=== PATIENT | female | born 1940 | race Caucasian/White ===

== ENCOUNTER 2017-04-21 11:20 | Inpatient (IN) | payer MEDICARE, MEDICAID ==
[~2017-04-21] VITALS: Ht 162.6 cm; Wt 63.0 kg
[2017-04-21] MEDS ORDERED: VANCOMYCIN 1 GM (PMX) 250 ML IVPB STA (11:37)
[2017-04-21] MEDS ORDERED: PIPER-TAZO 3.375 GM IV (PMX) 100 ML IVPB STA (11:37)
[2017-04-21] MEDS ORDERED: SODIUM CHLORIDE 0.9% 1L BAG IV* STA (11:45)
[2017-04-21] MEDS ORDERED: morphine 4 MG/ML VIAL IV STA (11:45)
[2017-04-21] MEDS ORDERED: ONDANSETRON 4 MG INJ IV STA (11:45)
[2017-04-21] MEDS ORDERED: ONDANSETRON 4 MG INJ IV PRN ×2 (12:00→16:00)
[2017-04-21] MEDS ORDERED: AZTREONAM 1 GM/NS (PMX) 50 ML IVPB ONE (12:00)
[2017-04-21] MEDS ORDERED: CLINDAMYCIN 900 MG/D5W (PMX) 50 ML IVPB SCH (12:00)
[2017-04-21] MEDS ORDERED: ACETAMINOPHEN 325 MG TAB PO PRN ×2 (12:00→16:00)
[2017-04-21] MEDS ORDERED: MEMA28CA PO (12:15)
[2017-04-21] MEDS ORDERED: CLOP75TA27 PO (12:15)
[2017-04-21] MEDS ORDERED: CARB1TAB14 PO (12:15)
[2017-04-21] MEDS ORDERED: PARO-37 PO (12:16)
[2017-04-21] MEDS ORDERED: RASA1TAB PO (12:16)
[2017-04-21] MEDS ORDERED: ATEN100T PO (12:20)
[2017-04-21] MEDS ORDERED: OMEG-135 PO (12:28)
[2017-04-21] MEDS ORDERED: CALC300T4 PO (12:31)
[2017-04-21] MEDS ORDERED: DOCU250C58 PO (12:31)
[2017-04-21] MEDS ORDERED: NORT25CA PO (12:31)
--- NOTE | 2017-04-21 13:26 | RADRPT ---
PROCEDURE: Chest x-ray CLINICAL INDICATION: Shortness of breath TECHNIQUE: Chest single view COMPARISON: None FINDINGS: There is mild cardiomegaly and an sclerotic aortic calcification. The pulmonary vessels are normal in caliber. Lung volumes are low with mild atelectasis. No confluent pneumonia seen. Costophrenic an gles sharp. There is lower cervical spine hardware. Moderate degenerative changes noted of the left glenohumeral joint. IMPRESSION: 1. Mild cardiomegaly and an sclerotic aortic calcification.. 2. Low lung volumes. 3. Cervical spine hardware RPTAT: HH .Lee Bhandari MD, MD Date Time Electronically viewed and signed by .Lee Bahndari MD, on 04/21/2017 13:26 .W/
--- NOTE | 2017-04-21 13:51 | RADRPT ---
PROCEDURE: XR Foot 3 Views. CLINICAL INDICATION: Right foot pain. Ulcer.. TECHNIQUE: AP, oblique and lateral views of the right foot were obtained. The images were reviewe d on a PACS workstation. COMPARISON: None. FINDINGS: Diffuse osteopenia is identified. The osseous structures appear intact. No destructive bony lesions are seen. No gross erosions are observed. Moderate narrowing and degenerative changes identified a t the first metatarsal phalangeal joint. The soft tissues are grossly unremarkable. IMPRESSION: No visualized radiographic evidence of osteomyelitis. If there is clinical suspicion for osteomyelit is, further characterization with MRI or bone scan is recommended. Osteopenia. Moderate degenerative change of the first metatarsal phalangeal joint. Osteopenia. RPTAT: AA .Terrell Shah MD, Date Time Electronically viewed and signed by .Terrell Shah MD, MD on 04/21/2017 13:51 .P/
--- NOTE | 2017-04-21 13:53 | ERD ---
ER Documentation Chief Complaint Chief Complaint R FOOT WOUND X 1 MONTH SENT FROM WOUND CENTER HPI Patient is a 77-year-old female with dementia and coronary disease who presents with gangrene. Please note the history and physical exam is limited secondary to the patient's mental status from dementia. The patient was sent from [facility] for admission for wet gangrene. The patient has infection to the right foot and heel. 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 The patient came from a convalescent home. I cannot obtain history otherwise. ROS All systems reviewed and are negative except as per history of present illness. Medications Home Meds Reported Medications Nortriptyline Hcl* (Nortriptyline Hcl*) 25 Mg Capsule, 25 MG PO HS, CAP 04/21/17 Docusate Sodium* (Colace*) 250 Mg Capsule, 250 MG PO BID, #60 CAP 04/21/17 Calcium Carbonate* (Tums X-Str) 300 Mg Tab.chew, 600 MG PO BID, TAB.CHEW 04/21/17 [place]-3 Fatty Acids/Fish Oil (Fish Oil 1,000 mg Capsule) 1 Each Capsule, 1 EACH PO BID, CAP 04/21/17 Atenolol* (Atenolol*) 100 Mg Tablet, 100 MG PO DAILY, #30 TAB 04/21/17 Rasagiline Mesylate* (Azilect*) 1 Mg Tablet, 1 MG PO DAILY, TAB 04/21/17 Paroxetine Hcl* (Paroxetine*) 20 Mg Tablet, 20 MG PO DAILY, TAB 04/21/17 Clopidogrel Bisulfate (Clopidogrel) 75 Mg Tablet, 75 MG PO DAILY, #30 TAB 04/21/17 Memantine* (Namenda* XR) 28 Mg Cap.spr.24, 28 MG PO DAILY, #30 TAB 04/21/17 Uyyensccf-Gobhkymf-Kpycqrvdvp (Stalevo 125) 31.25-200-125 Mg Tablet, 1 EACH PO QID, TAB 04/21/17 Allergies Allergies: Coded Allergies: Penicillins (Verified Allergy, Unknown, 04/21/17) PMhx/Soc Hx Cardiac Disorders: Yes (HTN) Hx Alcohol Use: No Hx Substance Use: No Hx Tobacco Use: No Smoking Status: Never smoker FmHx Family History: No diabetes Physical Exam Vitals Vital Signs Date Time Temp Pulse Resp B/P Pulse Ox O2 Delivery O2 Flow Rate FiO2 10/27/17 12:04 Nasal Cannula 04/21/17 11:35 99.4 76 18 187/70 97 Physical Exam Const: Moderate distress Head: Atraumatic Eyes: Normal Conjunctiva ENT: Normal External Ears, Nose and Mouth. Neck: Full range of motion..~ No meningismus. Resp: Clear to auscultation bilaterally Cardio: Regular rate and rhythm, no murmurs Abd: Soft, non tender, non distended. Normal bowel sounds Skin: Swelling, redness, and black necrosis of the right foot and ankle consistent with gangrene Back: No midline or flank tenderness Ext: No cyanosis, or edema Neur: Awake but demented at baseline Result Diagram: 04/21/17 1220 04/21/17 1220 Results 24 hrs Laboratory Tests Test 04/21/17 12:20 White Blood Count 14.710^3/ul Red Blood Count 3.2810^6/ul Hemoglobin 9.6g/dl Hematocrit 30.4% Mean Corpuscular Volume 92.7fl Mean Corpuscular Hemoglobin 29.3pg Mean Corpuscular Hemoglobin Concent 31.6g/dl Red Cell Distribution Width 13.3% Platelet Count 33550^3/UL Mean Platelet Volume 9.0fl Neutrophils % % Segmented Neutrophils % (Manual) 86% Band Neutrophils % (Manual) 1% Lymphocytes % % Lymphocytes % (Manual) 7% Monocytes % % Monocytes % (Manual) 3% Eosinophils % % Basophils % % Basophils % (Manual) 2% Promyelocytes % (Manual) 1% Nucleated Red Blood Cells % 0.0/100WBC Neutrophils # 10^3/ul Neutrophils # (Manual) 12.710^3/ul Band Neutrophils # 0.110^3/ul Absolute Lymphocytes (Manual) 1.010^3/ul Lymphocytes # 10^3/ul Monocytes # 10^3/ul Absolute Monocytes (Manual) 0.410^3/ul Eosinophils # 10^3/ul Basophils # 10^3/ul Basophils # (Manual) 0.210^3/ul Promyelocytes # 0.110^3/ul Nucleated Red Blood Cells # 10^3/ul Platelet Estimate INCREASED Giant Platelets 1% Polychromasia 1+ Prothrombin Time 13.3Sec Prothrombin Time Ratio 1.0 INR International Normalized Ratio 1.01 Activated Partial Thromboplast Time 31.2Sec Sodium Level 142mmol/L Potassium Level 4.4mmol/L Chloride Level 104mmol/L Carbon Dioxide Level 30mmol/L Anion Gap 12 Blood Urea Nitrogen 20mg/dl Creatinine 0.76mg/dl Glucose Level 113mg/dl Lactic Acid Level 1.4mmol/L Calcium Level 8.8mg/dl Total Bilirubin 0.2mg/dl Direct Bilirubin 0.00mg/dl Indirect Bilirubin 0.2mg/dl Aspartate Amino Transf (AST/SGOT) 18IU/L Alanine Aminotransferase (ALT/SGPT) 30IU/L Alkaline Phosphatase 106IU/L Troponin I < 0.012ng/ml Total Protein 7.3g/dl Albumin 3.9g/dl Globulin 3.40g/dl Albumin/Globulin Ratio 1.14 Current Medications Medications (Trade) Dose Ordered Sig/Samra Route PRN Reason Start Time Stop Time Status Last Admin Dose Admin Vancomycin HCl 250 ml @ 125 mls/hr ONCE STAT IVPB 04/21/17 11:37 04/21/17 13:36 DC Piperacillin Sod/ Tazobactam Sod 100 ml @ 100 mls/hr ONCE STAT IVPB 04/21/17 11:37 04/21/17 11:45 DC Aztreonam 50 ml @ 100 mls/hr ONCE ONCE IVPB 04/21/17 12:00 04/21/17 12:29 DC 04/21/17 12:00 Clindamycin HCl/ Dextrose (Cleocin 900 Mg/ D5W (Pmx)) 50 ml @ 50 mls/hr ONCE IVPB 04/21/17 12:00 04/21/17 13:00 DC Sodium Chloride (NS) 2,170 ml BOLUS OVER 2 HOURS STAT IV* 04/21/17 11:45 04/21/17 11:46 DC 04/21/17 12:20 Morphine Sulfate (morphine) 4 mg ONCE STAT IV 04/21/17 11:45 04/21/17 11:46 DC 04/21/17 12:20 Ondansetron HCl (Zofran Inj) 4 mg ONCE STAT IV 04/21/17 11:45 04/21/17 11:46 DC 04/21/17 12:20 Ondansetron HCl (Zofran Inj) 4 mg BRIDGE ORDER PRN IV NAUSEA AND/OR VOMITING 04/21/17 12:00 04/22/17 11:59 Acetaminophen (Tylenol Tab) 650 mg ER BRIDGE PRN PO MILD PAIN/FEVER 04/21/17 12:00 04/22/17 11:59 Procedures/MDM Chest x-ray negative per radiology. Foot x-ray pending. EKG read by me: Rate/Rhythm: Regular rate and rhythm at a normal rate Intervals: Normal Impression: No evidence of ischemia or arrhythmia Admit MDM: Patient's infectious symptoms have not stabilized and the patient is at risk of rapid decompensation. The patient will be admitted for careful hydration, antibiotic therapy, and infectious source control. Severe Sepsis criteria: Infectious source: Wet gangrene with cellulitis of the right foot End organ damage indicated by: No end organ damage Sepsis Management: Time of recognition of sepsis: Upon arrival Within 3 hours of recognition: Blood cultures x 2 before broad-spectrum antibiotics: Yes 30 ml/kg NS bolus Completed Initial lactate normal Repeat lactate pending Time of recognition of septic shock: No septic shock Septic Shock Assessment: Any lactic acid > 4.0 No Persistent hypotension (SBP < 90 or 40 mmHg drop, MAP < 65) despite 30 mL/kg IV fluid bolus No Volume Re-assessment for Septic Shock (post 30 ml/kg bolus): Epic shock at this time Persistent Hypotension Treatment: Comfort care No Central line Not Required Vasopressor started Not required I considered further perfusion assessment with CVP measurement, SCVO2, bedside ultrasound volume assessment, passive leg raise, trial of further fluid bolus. And proceeded with 30 ml/kg fluid bolus of NSS, broad spectrum antibiotics, and admission. Accepting Care Team Current data and ongoing care discussed. Admitting Physician: Dr. 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 Provision of immediate and broad-spectrum antibiotic therapy. Simultaneous assessment for possible sources in order to direct targeted therapy. Consideration for invasive and chemical support to prevent cardiopulmonary collapse. Departure Diagnosis: Primary Impression: Wet gangrene Additional Impressions: Foot pain Laterality: right Qualified Code: M79.671 - Right foot pain Sepsis Sepsis type: sepsis due to unspecified organism Qualified Code: A41.9 - Sepsis, due to unspecified organism Condition: NELLY Bear MD Apr 21, 2017 13:53
[2017-04-21 15:10] VITALS: BP 132/58; RESP 18
--- NOTE | 2017-04-21 15:52 | HP ---
Date/Time of Note Date/Time of Note DATE: 04/21/17 TIME: 15:46 Assessment/Plan VTE Prophylaxis VTE Prophylaxis Intervention: heparin Assessment/Plan Chief Complaint/Hosp Course 1. Sepsis secondary to right foot infection Vascular surgery with Dr. Montes and podiatry aware Obtain ultrasound arterial lower extremities to rule out ischemic causes Wound care and IV antibiotics 2. Parkinson's with dementia No acute issues, continue home meds Prophylaxis: Heparin Problems: HPI/ROS Admit Date/Time Admit Date/Time Apr 21, 2017 at 11:48 Hx of Present Illness She is a 77-year-old female with a history of Parkinson's with dementia, patient has had a wound in the right foot for the past 6 weeks. Patient was at outside facility where she received antibiotics, etiology of the skin infection has remained unclear. Patient was seen by podiatry today at [facility] and was transferred to the hospital for further work up and treatment. Patient cannot provide any history secondary to her dementia history is obtained by caregiver was bedside. ROS Patient cannot provide history secondary dementia PMH/Family/Social Past Medical History Parkinson's with dementia Social History Alcohol Use: none Smoking Status: Never smoker Drug Use: none Exam/Review of Systems Vital Signs Vitals Vital Signs Date Time Temp Pulse Resp B/P Pulse Ox O2 Delivery O2 Flow Rate FiO2 04/21/17 14:20 78 20 153/71 04/21/17 12:04 Nasal Cannula 04/21/17 11:35 99.4 97 Exam Constitutional: alert Psych: confusion Respiratory: clear to auscultation Cardiovascular: regular rate and rhythm Gastrointestinal: soft, No distended Musculoskeletal: nl extremities to inspection Labs Result Diagram: 04/21/17 1220 04/21/17 1220 VANESSA RODRIGUEZ Apr 21, 2017 15:52
[2017-04-21] MEDS ORDERED: NACL 0.9% 3 ML SYG IV SCH (16:00)
[2017-04-21] MEDS ORDERED: morphine 2 MG INJ IV PRN (16:00)
[2017-04-21] MEDS ORDERED: VANCOMYCIN IV PER PHARMACY XX SCH (16:00)
[2017-04-21 16:29] VITALS: Ht 162.6 cm; Wt 63.0 kg
[2017-04-21] MEDS: CARBIDOPA/LEVODOPA/ENTACAPONE XX SCH (16:30)
[2017-04-21] MEDS ORDERED: DIPHENHYDRAMINE 50 MG INJ IV PRN (16:30)
[2017-04-21] MEDS ORDERED: CARBIDOPA LEVODOPA ENTACAPONE PO SCH (17:00)
[2017-04-21] MEDS: HYDROCODONE/APAP (5/325) TAB PO PRN (17:12)
[2017-04-21] MEDS: Metronidazole 500 MG in NS 100 ML IVPB SCH ×2 (18:35→22:55)
[2017-04-21 20:00] VITALS: BP 128/57; PULSE 88; RESP 20
[2017-04-21] MEDS ORDERED: SOD CHLORIDE 0.9% 250 ML IV ONE (20:30)
[2017-04-21] MEDS ORDERED: NORTRIPTYLINE 25 MG CAP PO SCH (21:00)
[2017-04-21] MEDS ORDERED: PIPER-TAZO 3.375 GM IV (PMX) 100 ML IVPB SCH (22:00)
[2017-04-21] MEDS: CALCIUM CARBONATE 750 MG CHEW TAB PO SCH (22:12)
[2017-04-21] MEDS: MEMANTINE 10 MG TAB PO SCH (22:12)
[2017-04-21] MEDS: DOCUSATE SODIUM 250 MG CAP PO SCH (22:13)
[2017-04-21] MEDS: FISH OIL 1,000 MG CAP PO SCH (22:13)
[2017-04-21] MEDS: AZTREONAM 1 GM/NS (PMX) 50 ML IVPB SCH (22:19)
[2017-04-21] MEDS: SOD CHLORIDE 0.9% 1,000 ML IV SCH (22:20)
[2017-04-22] MEDS: CARBIDOPA/LEVODOPA/ENTACAPONE XX SCH (00:30)
[2017-04-22 02:00] VITALS: BP 141/69; RESP 20
[2017-04-22] MEDS: SOD CHLORIDE 0.9% 1,000 ML IV SCH ×2 (05:00→06:27)
[2017-04-22] MEDS: Metronidazole 500 MG in NS 100 ML IVPB SCH ×3 (06:26→21:40)
[2017-04-22] MEDS: ACCU-CHEK XX SCH ×3 (07:30→16:52)
[2017-04-22 08:00] VITALS: BP 148/67; RESP 20
[2017-04-22] MEDS ORDERED: PAROXETINE 20 MG TAB PO SCH (09:00)
[2017-04-22] MEDS: RASAGILINE MESYLATE 1 MG TAB PO SCH (09:41)
[2017-04-22] MEDS: AZTREONAM 1 GM/NS (PMX) 50 ML IVPB SCH ×2 (09:41→20:44)
[2017-04-22] MEDS: DOCUSATE SODIUM 250 MG CAP PO SCH ×2 (09:41→20:45)
[2017-04-22] MEDS: MEMANTINE 10 MG TAB PO SCH ×2 (09:41→20:45)
[2017-04-22] MEDS: FISH OIL 1,000 MG CAP PO SCH ×2 (09:41→20:45)
[2017-04-22] MEDS: CLOPIDOGREL 75 MG TAB PO SCH (09:41)
[2017-04-22] MEDS: ATENOLOL 100 MG TAB PO SCH (09:42)
[2017-04-22] MEDS: CALCIUM CARBONATE 750 MG CHEW TAB PO SCH ×2 (09:42→20:45)
[2017-04-22] MEDS: ENOXAPARIN 40 MG/0.4 ML SYG SC SCH (09:42)
--- NOTE | 2017-04-22 11:53 | PN ---
Date/Time of Note Date/Time of Note DATE: 04/22/17 TIME: 11:48 Assessment/Plan VTE Prophylaxis VTE Prophylaxis Intervention: heparin Lines/Catheters Urinary Cath still in place: No Assessment/Plan Chief Complaint/Hosp Course 1. Sepsis secondary to right foot infection Vascular surgery with Dr. Montes and podiatry aware Obtain ultrasound arterial lower extremities to rule out ischemic causes Wound care and IV antibiotics 2. Parkinson's with dementia No acute issues, continue home meds Prophylaxis: Heparin Problems: Subjective 24 Hr Interval Summary Constitutional: no complaints Exam/Review of Systems Vital Signs Vitals Vital Signs Date Time Temp Pulse Resp B/P Pulse Ox O2 Delivery O2 Flow Rate FiO2 04/22/17 08:00 98.6 88 20 148/67 98 04/21/17 20:00 Room Air Intake and Output 04/21/17 04/21/17 04/22/17 15:00 23:00 07:00 Intake Total 600 ml 2170 ml Balance 600 ml 2170 ml Exam Constitutional: alert, oriented Respiratory: clear to auscultation Cardiovascular: regular rate and rhythm Gastrointestinal: soft, No distended Musculoskeletal: No nl extremities to inspection Results Result Diagram: 04/22/17 0426 04/22/17 0426 Results 24 hrs Laboratory Tests Test 04/21/17 12:20 04/21/17 13:00 04/21/17 17:13 04/21/17 19:21 White Blood Count 14.7 H Red Blood Count 3.28 L Hemoglobin 9.6 L Hematocrit 30.4 L Mean Corpuscular Volume 92.7 Mean Corpuscular Hemoglobin 29.3 Mean Corpuscular Hemoglobin Concent 31.6 L Red Cell Distribution Width 13.3 Platelet Count 714 H Mean Platelet Volume 9.0 Neutrophils % Segmented Neutrophils % (Manual) 86 H Band Neutrophils % (Manual) 1 Lymphocytes % Lymphocytes % (Manual) 7 L Monocytes % Monocytes % (Manual) 3 Eosinophils % Basophils % Basophils % (Manual) 2 Promyelocytes % (Manual) 1 H Nucleated Red Blood Cells % 0.0 Neutrophils # Neutrophils # (Manual) 12.7 H Band Neutrophils # 0.1 Absolute Lymphocytes (Manual) 1.0 Lymphocytes # Monocytes # Absolute Monocytes (Manual) 0.4 Eosinophils # Basophils # Basophils # (Manual) 0.2 H Promyelocytes # 0.1 H Nucleated Red Blood Cells # Platelet Estimate INCREASED Giant Platelets 1 H Polychromasia 1+ Prothrombin Time 13.3 Prothrombin Time Ratio 1.0 INR International Normalized Ratio 1.01 Activated Partial Thromboplast Time 31.2 Sodium Level 142 Potassium Level 4.4 Chloride Level 104 Carbon Dioxide Level 30 Anion Gap 12 Blood Urea Nitrogen 20 Creatinine 0.76 Glucose Level 113 Lactic Acid Level 1.4 2.3 *H 2.6 *H Calcium Level 8.8 Total Bilirubin 0.2 Direct Bilirubin 0.00 Indirect Bilirubin 0.2 Aspartate Amino Transf (AST/SGOT) 18 Alanine Aminotransferase (ALT/SGPT) 30 Alkaline Phosphatase 106 Troponin I < 0.012 Total Protein 7.3 Albumin 3.9 Globulin 3.40 H Albumin/Globulin Ratio 1.14 Urine Color YELLOW Urine Clarity TURBID A Urine pH 8.0 Urine Specific [place] 1.015 Urine Ketones NEGATIVE Urine Nitrite NEGATIVE Urine Bilirubin NEGATIVE Urine Urobilinogen NEGATIVE Urine Leukocyte Esterase 3+ H Urine Microscopic RBC 78 H Urine Microscopic WBC > 182 H Urine Squamous Epithelial Cells MODERATE Urine Bacteria FEW A Urine Mucus FEW A Urine Hemoglobin 1+ H Urine Glucose NEGATIVE Urine Total Protein 1+ H Test 04/22/17 00:45 04/22/17 04:26 04/22/17 08:07 Lactic Acid Level 1.2 1.2 White Blood Count 14.9 H Red Blood Count 2.90 L Hemoglobin 8.5 L Hematocrit 27.0 L Mean Corpuscular Volume 93.1 Mean Corpuscular Hemoglobin 29.3 Mean Corpuscular Hemoglobin Concent 31.5 L Red Cell Distribution Width 13.2 Platelet Count 657 H Mean Platelet Volume 9.1 Neutrophils % 85.2 H Lymphocytes % 7.7 L Monocytes % 5.3 Eosinophils % 0.9 Basophils % 0.4 Nucleated Red Blood Cells % 0.0 Neutrophils # 12.7 H Lymphocytes # 1.1 Monocytes # 0.8 Eosinophils # 0.1 Basophils # 0.1 Nucleated Red Blood Cells # 0.0 Sodium Level 143 Potassium Level 4.4 Chloride Level 110 Carbon Dioxide Level 24 Anion Gap 13 Blood Urea Nitrogen 15 Creatinine 0.68 Glucose Level 124 Calcium Level 8.5 Phosphorus Level 3.6 Magnesium Level 1.9 Bedside Glucose 137 Medications Medications Current Medications Ondansetron HCl (Zofran Inj) 4 mg Q6H PRN IV NAUSEA AND/OR VOMITING; Start at 16:00 Acetaminophen (Tylenol Tab) 650 mg Q6H PRN PO PAIN LEVEL 1-3 OR FEVER; Start 04/21/17 at 16:00 Acetaminophen/ Hydrocodone Bitart ([place] (5/325)) 1 tab Q6H PRN PO MODERATE PAIN LEVEL 4-6 Last administered on 04/21/17 17:12; Admin Dose 1 TAB; Start 04/21/17 at 16:00 Zolpidem Tartrate (Ambien) 5 mg QHS PRN PO SLEEP; Start 04/21/17 at 16:00 Enoxaparin Sodium (Lovenox) 40 mg DAILY SC Last administered on 04/22/17 09: 42; Admin Dose 40 MG; Start 04/22/17 at 09:00 Atenolol (Tenormin) 100 mg DAILY PO Last administered on 04/22/17 09:42; Admin Dose 100 MG; Start 04/22/17 at 09:00 Calcium Carbonate (Tums Ex) 600 mg BID PO Last administered on 04/22/17 09:42 ; Admin Dose 600 MG; Start 04/21/17 at 21:00 Clopidogrel Bisulfate (plaVIX) 75 mg DAILY PO Last administered on 04/22/17 09:41; Admin Dose 75 MG; Start 04/22/17 at 09:00 Docusate Sodium (Colace) 250 mg BID PO Last administered on 04/22/17 09:41; Admin Dose 250 MG; Start 04/21/17 at 21:00 Rasagiline (Azilect) 1 mg DAILY PO Last administered on 04/22/17 09:41; Admin Dose 1 MG; Start 04/22/17 at 09:00 Memantine (Namenda) 10 mg BID PO Last administered on 04/22/17 09:41; Admin Dose 10 MG; Start 04/21/17 at 21:00 Fish Oil 1000 mg 1,000 mg BID PO Last administered on 04/22/17 09:41; Admin Dose 1,000 MG; Start 04/21/17 at 21:00 Metronidazole 100 ml @ 100 mls/hr Q8 IVPB Last administered on 04/22/17 06: 26; Admin Dose 100 MLS/HR; Start 04/21/17 at 17:00 Aztreonam (Azactam 1gm/NS (Pmx)) 50 ml @ 100 mls/hr Q12 IVPB Last administered on 04/22/17 09:41; Admin Dose 100 MLS/HR; Start 04/21/17 at 21: 00 Diphenhydramine HCl 25 mg 25 mg Q6H PRN IV ALLERGIC REACTION; Start 04/21/17 at 16:30 Sodium Chloride 1,000 ml @ 100 mls/hr Q10H IV Last administered on 04/22/17 06:27; Admin Dose 100 MLS/HR; Start 04/21/17 at 19:00 Vancomycin HCl (Vancocin) 250 ml @ 125 mls/hr Q24H IVPB ; Start 04/22/17 at 13 :00 Carbidopa/Levodopa (Sinemet (25/ 100)) 1.5 tab QID PO ; Start 04/22/17 at 13:00 Entacapone (Comtan) 200 mg QID PO ; Start 04/22/17 at 13:00 VANESSA RODRIGUEZ Apr 22, 2017 11:53
[2017-04-22] MEDS: ENTACAPONE 200 MG TAB PO SCH ×3 (12:22→20:45)
[2017-04-22] MEDS: CARBIDOPA/LEVODOPA (25/100) TAB PO SCH ×3 (12:22→20:45)
[2017-04-22] MEDS: VANCOMYCIN 1 GM in NS 250 ML IVPB SCH (12:22)
[2017-04-22] MEDS ORDERED: VANCOMYCIN 750 MG in DEXTROSE 5% 150 ML IVPB SCH (13:00)
[2017-04-22] MEDS: HYDROCODONE/APAP (5/325) TAB PO PRN (13:47)
[2017-04-22 14:00] VITALS: BP 148/67; RESP 18
[2017-04-22 20:00] VITALS: BP 141/65; RESP 20
[2017-04-23] MEDS: SOD CHLORIDE 0.9% 1,000 ML IV SCH ×3 (01:15→20:28)
[2017-04-23 02:00] VITALS: BP 158/68; RESP 20
[2017-04-23] MEDS: ZOLPIDEM 5 MG TAB PO PRN ×2 (02:01→21:18)
[2017-04-23] MEDS: Metronidazole 500 MG in NS 100 ML IVPB SCH ×3 (05:02→21:15)
[2017-04-23 08:00] VITALS: BP 144/67; RESP 18
[2017-04-23] MEDS: ACCU-CHEK XX SCH ×3 (08:23→17:15)
[2017-04-23] MEDS: AZTREONAM 1 GM/NS (PMX) 50 ML IVPB SCH ×2 (08:36→20:28)
[2017-04-23] MEDS: ENTACAPONE 200 MG TAB PO SCH ×4 (08:37→20:28)
[2017-04-23] MEDS: DOCUSATE SODIUM 250 MG CAP PO SCH ×2 (08:37→20:28)
[2017-04-23] MEDS: CLOPIDOGREL 75 MG TAB PO SCH (08:37)
[2017-04-23] MEDS: MEMANTINE 10 MG TAB PO SCH ×2 (08:37→20:29)
[2017-04-23] MEDS: FISH OIL 1,000 MG CAP PO SCH ×2 (08:37→20:29)
[2017-04-23] MEDS: CARBIDOPA/LEVODOPA (25/100) TAB PO SCH ×4 (08:37→20:29)
[2017-04-23] MEDS: CALCIUM CARBONATE 750 MG CHEW TAB PO SCH ×2 (08:37→20:29)
[2017-04-23] MEDS: ATENOLOL 100 MG TAB PO SCH (08:38)
[2017-04-23] MEDS: ENOXAPARIN 40 MG/0.4 ML SYG SC SCH (08:43)
[2017-04-23] MEDS: RASAGILINE MESYLATE 1 MG TAB PO SCH (09:00)
[2017-04-23] MEDS: VANCOMYCIN 1 GM in NS 250 ML IVPB SCH (12:31)
[2017-04-23 14:00] VITALS: BP 146/67; RESP 17
--- NOTE | 2017-04-23 18:58 | PN ---
Date/Time of Note Date/Time of Note DATE: 04/23/17 TIME: 18:57 Assessment/Plan VTE Prophylaxis VTE Prophylaxis Intervention: heparin Lines/Catheters IV C[facility] Type [facility]from [facility] Peripheral IV Urinary Cath still in place: No Assessment/Plan Chief Complaint/Hosp Course 1. Sepsis secondary to right foot infection Vascular surgery with Dr. Montes and podiatry aware, consults are pending Wound care and IV antibiotics 2. Parkinson's with dementia No acute issues, continue home meds Prophylaxis: Heparin Problems: Subjective 24 Hr Interval Summary Constitutional: no complaints Exam/Review of Systems Vital Signs Vitals Vital Signs Date Time Temp Pulse Resp B/P Pulse Ox O2 Delivery O2 Flow Rate FiO2 04/23/17 14:00 97.4 58 17 146/67 92 04/21/17 20:00 Room Air Intake and Output 04/22/17 04/22/17 04/23/17 15:00 23:00 07:00 Intake Total 400 ml 2220 ml 2300 ml Balance 400 ml 2220 ml 2300 ml Exam Constitutional: alert, oriented Respiratory: clear to auscultation Cardiovascular: regular rate and rhythm Gastrointestinal: soft, No distended Musculoskeletal: No nl extremities to inspection Results Result Diagram: 04/23/17 0424 04/23/17 0433 Results 24 hrs Laboratory Tests Test 04/23/17 04:24 04/23/17 04:33 04/23/17 08:23 04/23/17 12:36 White Blood Count 12.7 H Red Blood Count 2.73 L Hemoglobin 8.1 L Hematocrit 25.5 L Mean Corpuscular Volume 93.4 Mean Corpuscular Hemoglobin 29.7 Mean Corpuscular Hemoglobin Concent 31.8 L Red Cell Distribution Width 13.0 Platelet Count 597 H Mean Platelet Volume 9.0 Neutrophils % 74.9 Lymphocytes % 15.0 Monocytes % 7.5 Eosinophils % 1.8 Basophils % 0.3 Nucleated Red Blood Cells % 0.0 Neutrophils # 9.5 H Lymphocytes # 1.9 Monocytes # 1.0 H Eosinophils # 0.2 Basophils # 0.0 Nucleated Red Blood Cells # 0.0 Sodium Level 138 Potassium Level 3.7 Chloride Level 107 Carbon Dioxide Level 24 Anion Gap 11 Blood Urea Nitrogen 19 Creatinine 0.62 Glucose Level 122 Calcium Level 8.0 L Bedside Glucose 114 117 Test 04/23/17 17:15 Bedside Glucose 110 Medications Medications Current Medications Ondansetron HCl (Zofran Inj) 4 mg Q6H PRN IV NAUSEA AND/OR VOMITING; Start at 16:00 Acetaminophen (Tylenol Tab) 650 mg Q6H PRN PO PAIN LEVEL 1-3 OR FEVER; Start 04/21/17 at 16:00 Acetaminophen/ Hydrocodone Bitart ([place] (5/325)) 1 tab Q6H PRN PO MODERATE PAIN LEVEL 4-6 Last administered on 04/22/17 13:47; Admin Dose 1 TAB; Start 04/21/17 at 16:00 Zolpidem Tartrate (Ambien) 5 mg QHS PRN PO SLEEP Last administered on 02:01; Admin Dose 5 MG; Start 04/21/17 at 16:00 Enoxaparin Sodium (Lovenox) 40 mg DAILY SC Last administered on 04/23/17 08: 43; Admin Dose 40 MG; Start 04/22/17 at 09:00 Atenolol (Tenormin) 100 mg DAILY PO Last administered on 04/23/17 08:38; Admin Dose 100 MG; Start 04/22/17 at 09:00 Calcium Carbonate (Tums Ex) 600 mg BID PO Last administered on 04/23/17 08:37 ; Admin Dose 600 MG; Start 04/21/17 at 21:00 Clopidogrel Bisulfate (plaVIX) 75 mg DAILY PO Last administered on 04/23/17 08:37; Admin Dose 75 MG; Start 04/22/17 at 09:00 Docusate Sodium (Colace) 250 mg BID PO Last administered on 04/23/17 08:37; Admin Dose 250 MG; Start 04/21/17 at 21:00 Rasagiline (Azilect) 1 mg DAILY PO Last administered on 04/22/17 09:41; Admin Dose 1 MG; Start 04/22/17 at 09:00 Memantine (Namenda) 10 mg BID PO Last administered on 04/23/17 08:37; Admin Dose 10 MG; Start 04/21/17 at 21:00 Fish Oil 1000 mg 1,000 mg BID PO Last administered on 04/23/17 08:37; Admin Dose 1,000 MG; Start 04/21/17 at 21:00 Metronidazole 100 ml @ 100 mls/hr Q8 IVPB Last administered on 04/23/17 14: 33; Admin Dose 100 MLS/HR; Start 04/21/17 at 17:00 Aztreonam (Azactam 1gm/NS (Pmx)) 50 ml @ 100 mls/hr Q12 IVPB Last administered on 04/23/17 08:36; Admin Dose 100 MLS/HR; Start 04/21/17 at 21: 00 Diphenhydramine HCl 25 mg 25 mg Q6H PRN IV ALLERGIC REACTION; Start 04/21/17 at 16:30 Sodium Chloride 1,000 ml @ 100 mls/hr Q10H IV Last administered on 04/23/17 12:31; Admin Dose 100 MLS/HR; Start 04/21/17 at 19:00 Vancomycin HCl (Vancocin) 250 ml @ 125 mls/hr Q24H IVPB Last administered on 04/23/17 12:31; Admin Dose 125 MLS/HR; Start 04/22/17 at 13:00 Carbidopa/Levodopa (Sinemet (25/ 100)) 1.5 tab QID PO Last administered on 17:09; Admin Dose 1.5 TAB; Start 04/22/17 at 13:00 Entacapone (Comtan) 200 mg QID PO Last administered on 04/23/17 17:09; Admin Dose 200 MG; Start 04/22/17 at 13:00 Miscellaneous Information (*Rx Drug Level Order Reminder*) VANCOMYCIN TROUGH AT 1200 ONCE ONCE XX ; Start 04/24/17 at 12:00; Stop 04/24/17 at 12:01 VANESSA RODRIGUEZ Apr 23, 2017 18:58
[2017-04-23 21:20] VITALS: BP 132/66; RESP 18
[2017-04-24] VITALS (7 sets, daily range): BP systolic 154–195; BP diastolic 68–118; PULSE 62; RESP 16–20
[2017-04-24] MEDS: SOD CHLORIDE 0.9% 1,000 ML IV SCH ×2 (03:42→17:27)
[2017-04-24] MEDS: Metronidazole 500 MG in NS 100 ML IVPB SCH ×3 (05:07→23:29)
[2017-04-24] MEDS: ACCU-CHEK XX SCH ×3 (07:30→17:29)
[2017-04-24] MEDS: ENTACAPONE 200 MG TAB PO SCH ×4 (08:30→21:53)
[2017-04-24] MEDS: AZTREONAM 1 GM/NS (PMX) 50 ML IVPB SCH ×2 (08:30→21:53)
[2017-04-24] MEDS: MEMANTINE 10 MG TAB PO SCH ×2 (08:30→21:53)
[2017-04-24] MEDS: RASAGILINE MESYLATE 1 MG TAB PO SCH (08:32)
[2017-04-24] MEDS: DOCUSATE SODIUM 250 MG CAP PO SCH ×2 (08:32→21:53)
[2017-04-24] MEDS: CALCIUM CARBONATE 750 MG CHEW TAB PO SCH ×2 (08:33→21:53)
[2017-04-24] MEDS: ATENOLOL 100 MG TAB PO SCH (08:33)
[2017-04-24] MEDS: FISH OIL 1,000 MG CAP PO SCH ×2 (08:33→21:53)
[2017-04-24] MEDS: CLOPIDOGREL 75 MG TAB PO SCH (08:33)
[2017-04-24] MEDS: CARBIDOPA/LEVODOPA (25/100) TAB PO SCH ×4 (08:33→21:53)
[2017-04-24] MEDS: ENOXAPARIN 40 MG/0.4 ML SYG SC SCH (08:34)
--- NOTE | 2017-04-24 13:58 | PN ---
Date/Time of Note Date/Time of Note DATE: 04/24/17 TIME: 13:57 Assessment/Plan VTE Prophylaxis VTE Prophylaxis Intervention: LMWH Lines/Catheters IV Catheter Type (from [email or web address] Peripheral IV Urinary Cath still in place: No Assessment/Plan Chief Complaint/Hosp Course 1. Sepsis secondary to right foot infection Vascular surgery with Dr. Montes and podiatry aware, consults are pending Wound care and IV antibiotics 2. Parkinson's with dementia No acute issues, continue home meds Prophylaxis: Heparin Problems: Subjective 24 Hr Interval Summary Free Text/Dictation Awaiting surgical consultation Exam/Review of Systems Vital Signs Vitals Vital Signs Date Time Temp Pulse Resp B/P Pulse Ox O2 Delivery O2 Flow Rate FiO2 04/24/17 08:23 195/118 04/24/17 08:13 62 04/24/17 07:48 98.2 20 94 04/21/17 20:00 Room Air Intake and Output 04/23/17 04/23/17 04/24/17 15:00 23:00 07:00 Intake Total 300 ml 930 ml 1350 ml Balance 300 ml 930 ml 1350 ml Exam Constitutional: alert, oriented, well developed Psych: nl mood/affect, no complaints Head: atraumatic, normocephalic Eyes: EOMI, PERRL, nl conjunctiva, nl lids, nl sclera ENMT: nl external ears & nose, nl lips & teeth, nl nasal mucosa & septum Neck: non-tender, supple Respiratory: clear to auscultation, normal air movement Cardiovascular: nl pulses, regular rate and rhythm Gastrointestinal: nl liver, spleen, non-tender, soft Musculoskeletal: nl extremities to inspection, nl gait and stance Extremities: normal pulses Neurological: ELECTRICAL & INSTRUMENTATION SUPERVISOR II-XII intact, nl mental status, nl speech, nl strength Skin: nl turgor, No rash or lesions Lymph: nl lymph nodes Results Result Diagram: 04/24/1723 04/24/17522 Results 24 hrs Laboratory Tests Test 04/23/17 17:15 04/24/17 05:23 04/24/17 08:03 04/24/17 09:10 Bedside Glucose 110 67 L 70 White Blood Count 13.1 H Red Blood Count 2.89 L Hemoglobin 8.4 L Hematocrit 25.8 L Mean Corpuscular Volume 89.3 Mean Corpuscular Hemoglobin 29.1 Mean Corpuscular Hemoglobin Concent 32.6 Red Cell Distribution Width 13.2 Platelet Count 659 H Mean Platelet Volume 8.8 Neutrophils % 75.8 Lymphocytes % 14.6 L Monocytes % 6.5 Eosinophils % 2.2 Basophils % 0.4 Nucleated Red Blood Cells % 0.0 Neutrophils # 10.0 H Lymphocytes # 1.9 Monocytes # 0.9 Eosinophils # 0.3 Basophils # 0.1 Nucleated Red Blood Cells # 0.0 Sodium Level 141 Potassium Level 3.1 L Chloride Level 111 H Carbon Dioxide Level 23 Anion Gap 10 Blood Urea Nitrogen 9 # Creatinine 0.55 Glucose Level 101 Calcium Level 8.3 L Test 04/24/17 12:00 04/24/17 12:01 Vancomycin Level Trough < 5.0 L Bedside Glucose 120 Medications Medications Current Medications Ondansetron HCl (Zofran Inj) 4 mg Q6H PRN IV NAUSEA AND/OR VOMITING; Start at 16:00 Acetaminophen (Tylenol Tab) 650 mg Q6H PRN PO PAIN LEVEL 1-3 OR FEVER Last administered on 04/23/17 20:29; Admin Dose 650 MG; Start 04/21/17 at 16:00 Acetaminophen/ Hydrocodone Bitart ([place] (5/325)) 1 tab Q6H PRN PO MODERATE PAIN LEVEL 4-6 Last administered on 04/22/17 13:47; Admin Dose 1 TAB; Start 04/21/17 at 16:00 Zolpidem Tartrate (Ambien) 5 mg QHS PRN PO SLEEP Last administered on 21:18; Admin Dose 5 MG; Start 04/21/17 at 16:00 Enoxaparin Sodium (Lovenox) 40 mg DAILY SC Last administered on 04/24/17 08: 34; Admin Dose 40 MG; Start 04/22/17 at 09:00 Atenolol (Tenormin) 100 mg DAILY PO Last administered on 04/24/17 08:33; Admin Dose 100 MG; Start 04/22/17 at 09:00 Calcium Carbonate (Tums Ex) 600 mg BID PO Last administered on 04/24/17 08:33 ; Admin Dose 600 MG; Start 04/21/17 at 21:00 Clopidogrel Bisulfate (plaVIX) 75 mg DAILY PO Last administered on 04/24/17 08:33; Admin Dose 75 MG; Start 04/22/17 at 09:00 Docusate Sodium (Colace) 250 mg BID PO Last administered on 04/23/17 20:28; Admin Dose 250 MG; Start 04/21/17 at 21:00 Rasagiline (Azilect) 1 mg DAILY PO Last administered on 04/22/17 09:41; Admin Dose 1 MG; Start 04/22/17 at 09:00 Memantine (Namenda) 10 mg BID PO Last administered on 04/24/17 08:30; Admin Dose 10 MG; Start 04/21/17 at 21:00 Fish Oil 1000 mg 1,000 mg BID PO Last administered on 04/24/17 08:33; Admin Dose 1,000 MG; Start 04/21/17 at 21:00 Metronidazole 100 ml @ 100 mls/hr Q8 IVPB Last administered on 04/24/17 05: 07; Admin Dose 100 MLS/HR; Start 04/21/17 at 17:00 Aztreonam (Azactam 1gm/NS (Pmx)) 50 ml @ 100 mls/hr Q12 IVPB Last administered on 04/24/17 08:30; Admin Dose 100 MLS/HR; Start 04/21/17 at 21: 00 Diphenhydramine HCl 25 mg 25 mg Q6H PRN IV ALLERGIC REACTION; Start 04/21/17 at 16:30 Sodium Chloride 1,000 ml @ 100 mls/hr Q10H IV Last administered on 04/24/17 03:42; Admin Dose 100 MLS/HR; Start 04/21/17 at 19:00 Vancomycin HCl (Vancocin) 250 ml @ 125 mls/hr Q24H IVPB Last administered on 04/23/17 12:31; Admin Dose 125 MLS/HR; Start 04/22/17 at 13:00 Carbidopa/Levodopa (Sinemet (25/ 100)) 1.5 tab QID PO Last administered on 08:33; Admin Dose 1.5 TAB; Start 04/22/17 at 13:00 Entacapone (Comtan) 200 mg QID PO Last administered on 04/24/17 08:30; Admin Dose 200 MG; Start 04/22/17 at 13:00 YESSICA ALONSO MD Apr 24, 2017 13:58
--- NOTE | 2017-04-24 15:05 | CONS ---
DATE OF ADMISSION: 04/21/2017 DATE OF CONSULTATION: 04/24/2017 REFERRING PHYSICIAN: Dr. Warren Fontaine. REASON FOR CONSULTATION: Right foot gangrene. HISTORY OF PRESENT ILLNESS: This is a very pleasant 77-year-old woman with advanced Parkinson's dis ease and dementia. She is severely contracted at the hip and knee and basically has developed gangr sedrick of the right foot and heel and also has some ulcers on the calf. She has been getting palliativ e wound care with myself and Dr. [facility]. She was seen there on Monday and Dr. Gallardo saw her and felt that the foot looked worse and she was septic and she was sen t to the emergency room. She has been getting some IV antibiotics and her wound has improved over t . PAST MEDICAL HISTORY: Significant for advanced Parkinson's with dementia and right lower extremity gangrene. She has chronic arterial insufficiency, she is so severely contracted that revascularizat ion is not an option. She is not ambulatory. She is intermittently very lucid, sometimes is very d emented and sometimes seems to be quite with it and responsive. Today she is pretty awake and alert and is responsive. She has a auto radiator specialist with her at home usually. MEDICATIONS: Currently consist of: 1. Vancomycin. 2. Sinemet. 3. Comtan. 4. Lovenox. 5. Tenormin. 6. Plavix. 7. Azelex. 8. Accu-Cheks. 9. TUMS. 10. Colace. 11. Namenda. 12. Fish oil. 13. Aztreonam. 14. Flagyl. 16. Benadryl. 17. Zofran. 18. Tylenol. ALLERGIES: NO KNOWN DRUG ALLERGIES. SOCIAL HISTORY: She is a nonsmoker. She does not drink or use any illicit drugs. She lives at [facility] and has a auto radiator specialist who is with her all the time. FAMILY HISTORY: Noncontributory. REVIEW OF SYSTEMS: She currently denies having any pain. She has no chest pain or shortness of barbie ath. No nausea, vomiting, diarrhea. No fever, no chills, no recent weight gain or weight loss. inez has no pain in her feet. She is severely contracted at the knee and hip and is completely unable to straighten out either of her legs. She is subsequently in a position constantly and is tur kranthi one side or the other. PHYSICAL EXAMINATION GENERAL: She is an elderly woman. She speaks Nepali. She is in no distress. She has n o complaints currently. VITAL SIGNS: She is afebrile. Blood pressure is 195/118, heart rate is 62, respiratory rate is 20. NECK: She has 2+ carotid pulses bilaterally, 2+ radial and brachial pulses bilaterally. LUNGS: Clear. HEART: Regular rate and rhythm. ABDOMEN: Soft, nontender, nondistended. EXTREMITIES: She has 2+ femoral pulses bilaterally. It is difficult to feel popliteal or pedal pul ses just because of her severe contractions. I do not feel pedal pulses for sure and popliteal puls es are very difficult to palpate because of her right mobile. The left foot, she has had some wounds. those appear to have all closed up on the right. She has gangrene of the heel and of the medial calf, there is an area of necrotic skin there as well and on the lateral calf. There are no signs of wet gangrene currently, it is very dry. It looks like the wounds are clean. No odor, no d rainage, it sounds like it is much improved from Monday. LABORATORY DATA Her white count has come down to 13, it was in the 14s when she came in. She is no t having any fever. She does have an elevated platelet count. Creatinine is normal. She had attem pted arterial studies which really were not obtainable because of her severe contracture. She had h ad some done several months ago at [facility] which did show some fairly diffuse arterial i nsufficiency in both lower extremities. IMPRESSION: Right foot gangrene, currently looks dry and fairly stable. It looks about the same as it did when I saw her about 2 weeks ago. For now, I would just continue palliative wound care. I discussed with her and her auto radiator specialist in the past, the only real option if this were to become infect ed and life threatening, would be an above knee amputation of the right leg which she was not intere sted in pursuing previously. So I would continue currently the palliative wound, painting everythin g with Betadine that is necrotic, keep her on maybe some Bactrim or doxycycline for a few weeks just to make sure the infection is completely controlled and [facility] will [facility] and if they worsen or if she becomes septic, we could proceed with above knee a mputation pending her and her family's approval and consent. Dictated By: JOHN MATA/FELIX Conf#: [id number] DID#: [id number] CC: GEORGE GALLARDO DPM; MITCH BARGER MD; FERDINAND PARDO MD; WARREN FONTAINE MD;*EndCC*
--- NOTE | 2017-04-24 15:05 | CONS ---
DATE OF ADMISSION: 04/21/2017 DATE OF CONSULTATION: 04/24/2017 REFERRING PHYSICIAN: Dr. Warren Fontaine. REASON FOR CONSULTATION: Right foot gangrene. HISTORY OF PRESENT ILLNESS: This is a very pleasant 77-year-old woman with advanced Parkinson's dis ease and dementia. She is severely contracted at the hip and knee and basically has developed gangr sedrick of the right foot and heel and also has some ulcers on the calf. She has been getting palliativ e wound care with myself and Dr. Gallardo at [facility]. She was seen there on Monday and Dr. Gallardo saw her and felt that the foot looked worse and she was septic and she was sen t to the emergency room. She has been getting some IV antibiotics and her wound has improved over t . PAST MEDICAL HISTORY: Significant for advanced Parkinson's with dementia and right lower extremity gangrene. She has chronic arterial insufficiency, she is so severely contracted that revascularizat ion is not an option. She is not ambulatory. She is intermittently very lucid, sometimes is very d emented and sometimes seems to be quite with it and responsive. Today she is pretty awake and alert and is responsive. She has a adjudication specialist with her at home usually. MEDICATIONS: Currently consist of: 1. Vancomycin. 2. Sinemet. 3. Comtan. 4. Lovenox. 5. Tenormin. 6. Plavix. 7. Azelex. 8. Accu-Cheks. 9. TUMS. 10. Colace. 11. Namenda. 12. Fish oil. 13. Aztreonam. 14. Flagyl. 16. Benadryl. 17. Zofran. 18. Tylenol. ALLERGIES: NO KNOWN DRUG ALLERGIES. SOCIAL HISTORY: She is a nonsmoker. She does not drink or use any illicit drugs. [facility] and has a adjudication specialist who is with her all the time. FAMILY HISTORY: Noncontributory. REVIEW OF SYSTEMS: She currently denies having any pain. She has no chest pain or shortness of barbie ath. No nausea, vomiting, diarrhea. No fever, no chills, no recent weight gain or weight loss. inez has no pain in her feet. She is severely contracted at the knee and hip and is completely unable to straighten out either of her legs. She is subsequently in a position constantly and is tur kranthi one side or the other. PHYSICAL EXAMINATION GENERAL: She is an elderly woman. She speaks Amharic. She is in no distress. She has n o complaints currently. VITAL SIGNS: She is afebrile. Blood pressure is 195/118, heart rate is 62, respiratory rate is 20. NECK: She has 2+ carotid pulses bilaterally, 2+ radial and brachial pulses bilaterally. LUNGS: Clear. HEART: Regular rate and rhythm. ABDOMEN: Soft, nontender, nondistended. EXTREMITIES: She has 2+ femoral pulses bilaterally. It is difficult to feel popliteal or pedal pul ses just because of her severe contractions. I do not feel pedal pulses for sure and popliteal puls es are very difficult to palpate because of her right mobile. The left foot, she has had some wounds. those appear to have all closed up on the right. She has gangrene of the heel and of the medial calf, there is an area of necrotic skin there as well and on the lateral calf. There are no signs of wet gangrene currently, it is very dry. It looks like the wounds are clean. No odor, no d rainage, it sounds like it is much improved from Monday. LABORATORY DATA Her white count has come down to 13, it was in the 14s when she came in. She is no t having any fever. She does have an elevated platelet count. Creatinine is normal. She had attem pted arterial studies which really were not obtainable because of her severe contracture. She had h ad some done several months ago at [facility] which did show some fairly diffuse arterial i nsufficiency in both lower extremities. IMPRESSION: Right foot gangrene, currently looks dry and fairly stable. It looks about the same as it did when I saw her about 2 weeks ago. For now, I would just continue palliative wound care. I discussed with her and her adjudication specialist in the past, the only real option if this were to become infect ed and life threatening, would be an above knee amputation of the right leg which she was not intere sted in pursuing previously. So I would continue currently the palliative wound, painting everythin g with Betadine that is necrotic, keep her on maybe some Bactrim or doxycycline for a few weeks just to make sure the infection is completely controlled and we will [facility] and if they worsen or if she becomes septic, we could proceed with above knee a mputation pending her and her family's approval and consent. Dictated By: JOHN MATA/FELIX Conf#: [id number] DID#: [id number] CC: GEORGE GALLARDO DPM; MITCH BARGER MD; FERDINAND PARDO MD; WARREN FONTAINE MD;*EndCC*
--- NOTE | 2017-04-24 15:05 | CONS ---
DATE OF ADMISSION: 04/21/2017 DATE OF CONSULTATION: 04/24/2017 REFERRING PHYSICIAN: Dr. Warren Fontaine. REASON FOR CONSULTATION: Right foot gangrene. HISTORY OF PRESENT ILLNESS: This is a very pleasant 77-year-old woman with advanced Parkinson's dis ease and dementia. She is severely contracted at the hip and knee and basically has developed gangr sedrick of the right foot and heel and also has some ulcers on the calf. She has been getting palliativ e wound care with myself and Dr. Gallardo [facility]. She was seen there on Monday and Dr. Gallardo saw her and felt that the foot looked worse and she was septic and she was sen t to the emergency room. She has been getting some IV antibiotics and her wound has improved over t . PAST MEDICAL HISTORY: Significant for advanced Parkinson's with dementia and right lower extremity gangrene. She has chronic arterial insufficiency, she is so severely contracted that revascularizat ion is not an option. She is not ambulatory. She is intermittently very lucid, sometimes is very d emented and sometimes seems to be quite with it and responsive. Today she is pretty awake and alert and is responsive. She has a crawler dragline operator with her at home usually. MEDICATIONS: Currently consist of: 1. Vancomycin. 2. Sinemet. 3. Comtan. 4. Lovenox. 5. Tenormin. 6. Plavix. 7. Azelex. 8. Accu-Cheks. 9. TUMS. 10. Colace. 11. Namenda. 12. Fish oil. 13. Aztreonam. 14. Flagyl. 16. Benadryl. 17. Zofran. 18. Tylenol. ALLERGIES: NO KNOWN DRUG ALLERGIES. SOCIAL HISTORY: She is a nonsmoker. She does not drink or use any illicit drugs. She lives at [facility] and has a crawler dragline operator who is with her all the time. FAMILY HISTORY: Noncontributory. REVIEW OF SYSTEMS: She currently denies having any pain. She has no chest pain or shortness of barbie ath. No nausea, vomiting, diarrhea. No fever, no chills, no recent weight gain or weight loss. inez has no pain in her feet. She is severely contracted at the knee and hip and is completely unable to straighten out either of her legs. She is subsequently in a position constantly and is tur kranthi one side or the other. PHYSICAL EXAMINATION GENERAL: She is an elderly woman. She speaks Bengali. She is in no distress. She has n o complaints currently. VITAL SIGNS: She is afebrile. Blood pressure is 195/118, heart rate is 62, respiratory rate is 20. NECK: She has 2+ carotid pulses bilaterally, 2+ radial and brachial pulses bilaterally. LUNGS: Clear. HEART: Regular rate and rhythm. ABDOMEN: Soft, nontender, nondistended. EXTREMITIES: She has 2+ femoral pulses bilaterally. It is difficult to feel popliteal or pedal pul ses just because of her severe contractions. I do not feel pedal pulses for sure and popliteal puls es are very difficult to palpate because of her right mobile. The left foot, she has had some wounds. those appear to have all closed up on the right. She has gangrene of the heel and of the medial calf, there is an area of necrotic skin there as well and on the lateral calf. There are no signs of wet gangrene currently, it is very dry. It looks like the wounds are clean. No odor, no d rainage, it sounds like it is much improved from Monday. LABORATORY DATA Her white count has come down to 13, it was in the 14s when she came in. She is no t having any fever. She does have an elevated platelet count. Creatinine is normal. She had attem pted arterial studies which really were not obtainable because of her severe contracture. She had h ad some done several months ago at [facility] which did show some fairly diffuse arterial i nsufficiency in both lower extremities. IMPRESSION: Right foot gangrene, currently looks dry and fairly stable. It looks about the same as it did when I saw her about 2 weeks ago. For now, I would just continue palliative wound care. I discussed with her and her crawler dragline operator in the past, the only real option if this were to become infect ed and life threatening, would be an above knee amputation of the right leg which she was not intere sted in pursuing previously. So I would continue currently the palliative wound, painting everythin g with Betadine that is necrotic, keep her on maybe some Bactrim or doxycycline for a few weeks just to make sure the infection is completely controlled and we will [facility] and if they worsen or if she becomes septic, we could proceed with above knee a mputation pending her and her family's approval and consent. Dictated By: JOHN MATA/FELIX Conf#: [id number] DID#: [id number] CC: GEORGE GALLARDO DPM; MITCH BARGER MD; FERDINAND PARDO MD; WARREN FONTAINE MD;*EndCC*
[2017-04-24] MEDS: VANCOMYCIN 1 GM in NS 250 ML IVPB SCH (15:39)
--- NOTE | 2017-04-24 17:58 | CONS ---
Date/Time of Note Date/Time of Note DATE: 04/24/17 TIME: 17:54 Assessment/Plan Assessment/Plan Problems: (1) Foot pain Status: Acute Qualifiers: Qualified Code: M79.671 - Right foot pain (2) Wet gangrene Status: Acute (3) Sepsis Status: Acute Qualifiers: Qualified Code: A41.9 - Sepsis, due to unspecified organism Additional Assessment/Plan Patient is under care of vascular surgery. I will defer any type of surgery at this time until we get clearance from our collagen vascular surgery. For now, daily dressing change with Betadine paint to the lesions on both feet. I will follow patient in-house. Thank you again for your kind consultation. Thank you again for involving me in the care of this patient. If you have any questions regarding this case, please feel free to contact me at pager: or reach me at mobile: [phone]. Consultation Date/Type/Reason Admit Date/Time Apr 21, 2017 at 11:48 Date of Consultation: Apr 24, 2017 Type of Consultation: Foot and ankle surgery Reason for Consultation Evaluation of bilateral lower extremity gangrene Hx of Present Illness Thank you very much for your kind consultation. As you know this is a 77-year- old female patient with history of Parkinson's disease and dementia who was seen apparently by Dr. Gallardo [facility] and was transferred to the hospital for workup and treatment. I was consulted for evaluation and treatment of the lower extremity multiple gangrenous changes. Most of the history is obtained from chart review secondary to patient's dementia. Constitutional: no complaints Psychological: nl mood/affect, no complaints Past Medical History As per history of present illness. Past Surgical History As per history of present illness. Social History As per history of present illness. Alcohol Use: none Smoking Status: Never smoker Drug Use: none Exam/Review of Systems Vital Signs Vitals Vital Signs Date Time Temp Pulse Resp B/P Pulse Ox O2 Delivery O2 Flow Rate FiO2 04/24/17 14:07 98.5 69 20 187/77 98 04/21/17 20:00 Room Air Intake and Output 04/23/17 04/23/17 04/24/17 15:00 23:00 07:00 Intake Total 300 ml 930 ml 1350 ml Balance 300 ml 930 ml 1350 ml Exam Patient is laying supine in bed, contracted and unable to respond to questions properly. Bilateral lower extremity gangrenous changes noted including the lower leg, ankle and heel. Parts of the foot are also involved. There is no active pus and no bleeding noted. The areas seem to be tender to palpation. Right foot x-ray was reviewed. Shows no fracture or dislocation. Shows degenerative changes in the first metatarsophalangeal joint. No foreign body noted. Results Result Diagram: 04/24/1752204/24/17522 Results 24 hrs Laboratory Tests Test 04/24/17 05:23 04/24/17 08:03 04/24/17 09:10 04/24/17 12:00 White Blood Count 13.1 H Red Blood Count 2.89 L Hemoglobin 8.4 L Hematocrit 25.8 L Mean Corpuscular Volume 89.3 Mean Corpuscular Hemoglobin 29.1 Mean Corpuscular Hemoglobin Concent 32.6 Red Cell Distribution Width 13.2 Platelet Count 659 H Mean Platelet Volume 8.8 Neutrophils % 75.8 Lymphocytes % 14.6 L Monocytes % 6.5 Eosinophils % 2.2 Basophils % 0.4 Nucleated Red Blood Cells % 0.0 Neutrophils # 10.0 H Lymphocytes # 1.9 Monocytes # 0.9 Eosinophils # 0.3 Basophils # 0.1 Nucleated Red Blood Cells # 0.0 Sodium Level 141 Potassium Level 3.1 L Chloride Level 111 H Carbon Dioxide Level 23 Anion Gap 10 Blood Urea Nitrogen 9 # Creatinine 0.55 Glucose Level 101 Calcium Level 8.3 L Bedside Glucose 67 L 70 Vancomycin Level Trough < 5.0 L Test 04/24/17 12:01 04/24/17 17:29 Bedside Glucose 120 104 Medications Medications Current Medications Ondansetron HCl (Zofran Inj) 4 mg Q6H PRN IV NAUSEA AND/OR VOMITING; Start at 16:00 Acetaminophen (Tylenol Tab) 650 mg Q6H PRN PO PAIN LEVEL 1-3 OR FEVER Last administered on 04/23/17 20:29; Admin Dose 650 MG; Start 04/21/17 at 16:00 Acetaminophen/ Hydrocodone Bitart ([place] (5/325)) 1 tab Q6H PRN PO MODERATE PAIN LEVEL 4-6 Last administered on 04/22/17 13:47; Admin Dose 1 TAB; Start 04/21/17 at 16:00 Zolpidem Tartrate (Ambien) 5 mg QHS PRN PO SLEEP Last administered on 21:18; Admin Dose 5 MG; Start 04/21/17 at 16:00 Enoxaparin Sodium (Lovenox) 40 mg DAILY SC Last administered on 04/24/17 08: 34; Admin Dose 40 MG; Start 04/22/17 at 09:00 Atenolol (Tenormin) 100 mg DAILY PO Last administered on 04/24/17 08:33; Admin Dose 100 MG; Start 04/22/17 at 09:00 Calcium Carbonate (Tums Ex) 600 mg BID PO Last administered on 04/24/17 08:33 ; Admin Dose 600 MG; Start 04/21/17 at 21:00 Clopidogrel Bisulfate (plaVIX) 75 mg DAILY PO Last administered on 04/24/17 08:33; Admin Dose 75 MG; Start 04/22/17 at 09:00 Docusate Sodium (Colace) 250 mg BID PO Last administered on 04/23/17 20:28; Admin Dose 250 MG; Start 04/21/17 at 21:00 Rasagiline (Azilect) 1 mg DAILY PO Last administered on 04/22/17 09:41; Admin Dose 1 MG; Start 04/22/17 at 09:00 Memantine (Namenda) 10 mg BID PO Last administered on 04/24/17 08:30; Admin Dose 10 MG; Start 04/21/17 at 21:00 Fish Oil 1000 mg 1,000 mg BID PO Last administered on 04/24/17 08:33; Admin Dose 1,000 MG; Start 04/21/17 at 21:00 Metronidazole 100 ml @ 100 mls/hr Q8 IVPB Last administered on 04/24/17 15: 43; Admin Dose 100 MLS/HR; Start 04/21/17 at 17:00 Aztreonam (Azactam 1gm/NS (Pmx)) 50 ml @ 100 mls/hr Q12 IVPB Last administered on 04/24/17 08:30; Admin Dose 100 MLS/HR; Start 04/21/17 at 21: 00 Diphenhydramine HCl 25 mg 25 mg Q6H PRN IV ALLERGIC REACTION; Start 04/21/17 at 16:30 Sodium Chloride 1,000 ml @ 100 mls/hr Q10H IV Last administered on 04/24/17 17:27; Admin Dose 100 MLS/HR; Start 04/21/17 at 19:00 Vancomycin HCl (Vancocin) 250 ml @ 125 mls/hr Q24H IVPB Last administered on 04/24/17 15:39; Admin Dose 125 MLS/HR; Start 04/22/17 at 13:00 Carbidopa/Levodopa (Sinemet (25/ 100)) 1.5 tab QID PO Last administered on 17:27; Admin Dose 1.5 TAB; Start 04/22/17 at 13:00 Entacapone (Comtan) 200 mg QID PO Last administered on 04/24/17 17:27; Admin Dose 200 MG; Start 04/22/17 at 13:00 ABBY LINDO DPM Apr 24, 2017 17:58
[2017-04-24] MEDS: ZOLPIDEM 5 MG TAB PO PRN (23:28)
[2017-04-25] VITALS (7 sets, daily range): BP systolic 135–216; BP diastolic 58–98; PULSE 65–87; RESP 16–20
[2017-04-25] MEDS: HYDROCODONE/APAP (5/325) TAB PO PRN ×3 (00:15→23:51)
[2017-04-25] MEDS: SOD CHLORIDE 0.9% 1,000 ML IV SCH ×2 (03:00→13:00)
[2017-04-25] MEDS ORDERED: VANCOMYCIN 750 MG in DEXTROSE 5% 150 ML IVPB SCH (03:00)
[2017-04-25] MEDS: Metronidazole 500 MG in NS 100 ML IVPB SCH ×2 (06:06→14:51)
[2017-04-25] MEDS: ACCU-CHEK XX SCH ×3 (07:30→17:35)
[2017-04-25] MEDS ORDERED: hydrALAzine 20 MG INJ IV ONE (08:00)
[2017-04-25] MEDS ORDERED: POTASSIUM CHLORIDE 250 ML IVPB ONE (08:00)
[2017-04-25] MEDS: DOCUSATE SODIUM 250 MG CAP PO SCH ×2 (09:34→20:38)
[2017-04-25] MEDS: CARBIDOPA/LEVODOPA (25/100) TAB PO SCH ×4 (09:34→20:39)
[2017-04-25] MEDS: RASAGILINE MESYLATE 1 MG TAB PO SCH (09:34)
[2017-04-25] MEDS: FISH OIL 1,000 MG CAP PO SCH ×2 (09:35→20:39)
[2017-04-25] MEDS: CALCIUM CARBONATE 750 MG CHEW TAB PO SCH ×2 (09:35→20:40)
[2017-04-25] MEDS: ENTACAPONE 200 MG TAB PO SCH ×4 (09:35→20:39)
[2017-04-25] MEDS: MEMANTINE 10 MG TAB PO SCH ×2 (09:35→20:39)
[2017-04-25] MEDS: CLOPIDOGREL 75 MG TAB PO SCH (09:35)
[2017-04-25] MEDS: AZTREONAM 1 GM/NS (PMX) 50 ML IVPB SCH (09:38)
[2017-04-25] MEDS: ENOXAPARIN 40 MG/0.4 ML SYG SC SCH (09:39)
[2017-04-25] MEDS: ATENOLOL 100 MG TAB PO SCH (11:14)
[2017-04-25] MEDS ORDERED: SULF1TAB31 PO (15:29)
[2017-04-25] MEDS ORDERED: POTASSIUM CHLORIDE 250 ML IVPB SCH (15:30)
--- NOTE | 2017-04-25 15:30 | PDOCDIS ---
Discharge Instructions DIAGNOSIS Discharge Diagnosis Pressure wound CONDITION Patient Condition: Fair HOME CARE INSTRUCTIONS: Special Diet: regular FOLLOW UP/APPOINTMENTS Follow-up Plan Follow up with the wound care doctors in the [facility] center Take Bactrim twice daily for your wound and continue betadyne solution YESSICA ALONSO MD Apr 25, 2017 15:30
--- NOTE | 2017-04-25 15:30 | PDOCDIS ---
Discharge Instructions DIAGNOSIS Discharge Diagnosis Pressure wound CONDITION Patient Condition: Fair HOME CARE INSTRUCTIONS: Special Diet: regular FOLLOW UP/APPOINTMENTS Follow-up Plan Follow up with the wound care doctors in the [facility] center Take Bactrim twice daily for your wound and continue betadyne solution EYSSICA ALONSO MD Apr 25, 2017 15:30
--- NOTE | 2017-04-25 15:30 | PDOCDIS ---
Discharge Instructions DIAGNOSIS Discharge Diagnosis Pressure wound CONDITION Patient Condition: Fair HOME CARE INSTRUCTIONS: Special Diet: regular FOLLOW UP/APPOINTMENTS Follow-up Plan Follow up with the wound care doctors in the [facility] center Take Bactrim twice daily for your wound and continue betadyne solution YESSICA ALONSO MD Apr 25, 2017 15:30
--- NOTE | 2017-04-25 15:35 | DS ---
Date/Time of Note Date/Time of Note DATE: 04/25/17 TIME: 15:33 Discharge Summary Admission/Discharge Info Admit Date/Time Apr 21, 2017 at 11:48 Discharge Date/Time Discharge Diagnosis Pressure wound Patient Condition: Fair Hx of Present Illness She is a 77-year-old female with a history of Parkinson's with dementia, patient has had a wound in the right foot for the past 6 weeks. Patient was at outside facility where she received antibiotics, etiology of the skin infection has remained unclear. Patient was seen by podiatry today at [facility] and was transferred to the hospital for further work up and treatment. Patient cannot provide any history secondary to her dementia history is obtained by caregiver was bedside. Hospital Course Thank you very much for your kind consultation. As you know this is a 77-year- old female patient with history of Parkinson's disease and dementia who was seen apparently by Dr. Gallardo at the [facility] and was transferred to the hospital for workup and treatment. I was consulted for evaluation and treatment of the lower extremity multiple gangrenous changes. Most of the history is obtained from chart review secondary to patient's dementia. 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 XR was negative for OM Seen by vascular surgery and podiatry, who recommended local wound care only and PO abx chronically. Patient was discharged with PO bactrim and follow up in clinic Home Meds Reported Medications Nortriptyline Hcl* (Nortriptyline Hcl*) 25 Mg Capsule, 25 MG PO HS, CAP 04/21/17 Docusate Sodium* (Colace*) 250 Mg Capsule, 250 MG PO BID, #60 CAP 04/21/17 Calcium Carbonate* (Tums X-Str) 300 Mg Tab.chew, 600 MG PO BID, TAB.CHEW 04/21/17 [place]-3 Fatty Acids/Fish Oil (Fish Oil 1,000 mg Capsule) 1 Each Capsule, 1 EACH PO BID, CAP 04/21/17 Atenolol* (Atenolol*) 100 Mg Tablet, 100 MG PO DAILY, #30 TAB 04/21/17 Rasagiline Mesylate* (Azilect*) 1 Mg Tablet, 1 MG PO DAILY, TAB 04/21/17 Paroxetine Hcl* (Paroxetine*) 20 Mg Tablet, 20 MG PO DAILY, TAB 04/21/17 Clopidogrel Bisulfate (Clopidogrel) 75 Mg Tablet, 75 MG PO DAILY, #30 TAB 04/21/17 Memantine* (Namenda* XR) 28 Mg Cap.spr.24, 28 MG PO DAILY, #30 TAB 04/21/17 Spgrbfjdj-Sarcknix-Hyflpksonm (Stalevo 125) 31.25-200-125 Mg Tablet, 1 EACH PO QID, TAB 04/21/17 Follow-up Plan Follow up with the wound care doctors in the [facility] center Take Bactrim twice daily for your wound and continue betadyne solution Primary Care Provider Joy Russell MD Pending Labs Laboratory Tests Test 04/24/17 17:29 04/25/17 05:38 04/25/17 08:07 04/25/17 12:17 Bedside Glucose 104mg/dL (70-220) 83mg/dL (70-220) 127mg/dL (70-220) White Blood Count 11.110^3/ul (4.8-10.8) Red Blood Count 3.0810^6/ul (4.20-5.40) Hemoglobin 9.2g/dl (12.0-16.0) Hematocrit 28.3% (37.0-47.0) Mean Corpuscular Volume 91.9fl (82.0-101.0) Mean Corpuscular Hemoglobin 29.9pg (29.0-33.0) Mean Corpuscular Hemoglobin Concent 32.5g/dl (32.0-37.0) Red Cell Distribution Width 13.2% (11.5-14.5) Platelet Count 32112^3/UL (140-415) Mean Platelet Volume 8.9fl (7.4-10.4) Neutrophils % 76.2% (39.0-77.0) Lymphocytes % 13.3% (15.0-51.0) Monocytes % 7.7% (0.0-11.0) Eosinophils % 2.1% (0.0-7.0) Basophils % 0.3% (0.0-2.0) Nucleated Red Blood Cells % 0.0/100WBC (0.0-0.0) Neutrophils # 8.510^3/ul (1.6-7.5) Lymphocytes # 1.510^3/ul (0.8-2.9) Monocytes # 0.910^3/ul (0.3-0.9) Eosinophils # 0.210^3/ul (0.0-0.5) Basophils # 0.010^3/ul (0.0-0.1) Nucleated Red Blood Cells # 0.010^3/ul (0.0-0.0) Sodium Level 142mmol/L (135-144) Potassium Level 2.9mmol/L (3.5-5.1) Chloride Level 111mmol/L (97-110) Carbon Dioxide Level 26mmol/L (21-31) Anion Gap 8 (8-16) Blood Urea Nitrogen 8mg/dl (7-20) Creatinine 0.54mg/dl (0.44-1.00) Glucose Level 127mg/dl (70-220) Calcium Level 8.4mg/dl (8.4-10.2) Total Bilirubin 0.0mg/dl (0.2-1.3) Direct Bilirubin 0.00mg/dl (0.00-0.20) Indirect Bilirubin 0.0mg/dl (0-1.1) Aspartate Amino Transf (AST/SGOT) 88IU/L (15-46) Alanine Aminotransferase (ALT/SGPT) 29IU/L (13-69) Alkaline Phosphatase 90IU/L (42-121) Total Protein 6.2g/dl (6.1-8.1) Albumin 2.7g/dl (3.3-4.9) Globulin 3.50g/dl (1.3-3.2) Albumin/Globulin Ratio 0.77 YESSICA ALONSO MD Apr 25, 2017 15:35
--- NOTE | 2017-04-25 15:35 | DS ---
Date/Time of Note Date/Time of Note DATE: 04/25/17 TIME: 15:33 Discharge Summary Admission/Discharge Info Admit Date/Time Apr 21, 2017 at 11:48 Discharge Date/Time Discharge Diagnosis Pressure wound Patient Condition: Fair Hx of Present Illness She is a 77-year-old female with a history of Parkinson's with dementia, patient has had a wound in the right foot for the past 6 weeks. Patient was at outside facility where she received antibiotics, etiology of the skin infection has remained unclear. Patient was seen by podiatry today at [facility] and was transferred to the hospital for further work up and treatment. Patient cannot provide any history secondary to her dementia history is obtained by caregiver was bedside. Hospital Course Thank you very much for your kind consultation. As you know this is a 77-year- old female patient with history of Parkinson's disease and dementia who was seen apparently by Dr. Gallardo at the [facility] prevention center and was transferred to the hospital for workup and treatment. I was consulted for evaluation and treatment of the lower extremity multiple gangrenous changes. Most of the history is obtained from chart review secondary to patient's dementia. 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 XR was negative for OM Seen by vascular surgery and podiatry, who recommended local wound care only and PO abx chronically. Patient was discharged with PO bactrim and follow up in clinic Home Meds Reported Medications Nortriptyline Hcl* (Nortriptyline Hcl*) 25 Mg Capsule, 25 MG PO HS, CAP 04/21/17 Docusate Sodium* (Colace*) 250 Mg Capsule, 250 MG PO BID, #60 CAP 04/21/17 Calcium Carbonate* (Tums X-Str) 300 Mg Tab.chew, 600 MG PO BID, TAB.CHEW 04/21/17 [place]-3 Fatty Acids/Fish Oil (Fish Oil 1,000 mg Capsule) 1 Each Capsule, 1 EACH PO BID, CAP 04/21/17 Atenolol* (Atenolol*) 100 Mg Tablet, 100 MG PO DAILY, #30 TAB 04/21/17 Rasagiline Mesylate* (Azilect*) 1 Mg Tablet, 1 MG PO DAILY, TAB 04/21/17 Paroxetine Hcl* (Paroxetine*) 20 Mg Tablet, 20 MG PO DAILY, TAB 04/21/17 Clopidogrel Bisulfate (Clopidogrel) 75 Mg Tablet, 75 MG PO DAILY, #30 TAB 04/21/17 Memantine* (Namenda* XR) 28 Mg Cap.spr.24, 28 MG PO DAILY, #30 TAB 04/21/17 Smodwgrtz-Xtuexdpb-Cbeamxxunn (Stalevo 125) 31.25-200-125 Mg Tablet, 1 EACH PO QID, TAB 04/21/17 Follow-up Plan Follow up with the wound care doctors in the [facility] center Take Bactrim twice daily for your wound and continue betadyne solution Primary Care Provider Joy Russell MD Pending Labs Laboratory Tests Test 04/24/17 17:29 04/25/17 05:38 04/25/17 08:07 04/25/17 12:17 Bedside Glucose 104mg/dL (70-220) 83mg/dL (70-220) 127mg/dL (70-220) White Blood Count 11.110^3/ul (4.8-10.8) Red Blood Count 3.0810^6/ul (4.20-5.40) Hemoglobin 9.2g/dl (12.0-16.0) Hematocrit 28.3% (37.0-47.0) Mean Corpuscular Volume 91.9fl (82.0-101.0) Mean Corpuscular Hemoglobin 29.9pg (29.0-33.0) Mean Corpuscular Hemoglobin Concent 32.5g/dl (32.0-37.0) Red Cell Distribution Width 13.2% (11.5-14.5) Platelet Count 25129^3/UL (140-415) Mean Platelet Volume 8.9fl (7.4-10.4) Neutrophils % 76.2% (39.0-77.0) Lymphocytes % 13.3% (15.0-51.0) Monocytes % 7.7% (0.0-11.0) Eosinophils % 2.1% (0.0-7.0) Basophils % 0.3% (0.0-2.0) Nucleated Red Blood Cells % 0.0/100WBC (0.0-0.0) Neutrophils # 8.510^3/ul (1.6-7.5) Lymphocytes # 1.510^3/ul (0.8-2.9) Monocytes # 0.910^3/ul (0.3-0.9) Eosinophils # 0.210^3/ul (0.0-0.5) Basophils # 0.010^3/ul (0.0-0.1) Nucleated Red Blood Cells # 0.010^3/ul (0.0-0.0) Sodium Level 142mmol/L (135-144) Potassium Level 2.9mmol/L (3.5-5.1) Chloride Level 111mmol/L (97-110) Carbon Dioxide Level 26mmol/L (21-31) Anion Gap 8 (8-16) Blood Urea Nitrogen 8mg/dl (7-20) Creatinine 0.54mg/dl (0.44-1.00) Glucose Level 127mg/dl (70-220) Calcium Level 8.4mg/dl (8.4-10.2) Total Bilirubin 0.0mg/dl (0.2-1.3) Direct Bilirubin 0.00mg/dl (0.00-0.20) Indirect Bilirubin 0.0mg/dl (0-1.1) Aspartate Amino Transf (AST/SGOT) 88IU/L (15-46) Alanine Aminotransferase (ALT/SGPT) 29IU/L (13-69) Alkaline Phosphatase 90IU/L (42-121) Total Protein 6.2g/dl (6.1-8.1) Albumin 2.7g/dl (3.3-4.9) Globulin 3.50g/dl (1.3-3.2) Albumin/Globulin Ratio 0.77 YESSICA ALONSO MD Apr 25, 2017 15:35
--- NOTE | 2017-04-25 15:35 | DS ---
Date/Time of Note Date/Time of Note DATE: 04/25/17 TIME: 15:33 Discharge Summary Admission/Discharge Info Admit Date/Time Apr 21, 2017 at 11:48 Discharge Date/Time Discharge Diagnosis Pressure wound Patient Condition: Fair Hx of Present Illness She is a 77-year-old female with a history of Parkinson's with dementia, patient has had a wound in the right foot for the past 6 weeks. Patient was at outside facility where she received antibiotics, etiology of the skin infection has remained unclear. Patient was seen by podiatry today at [facility] and was transferred to the hospital for further work up and treatment. Patient cannot provide any history secondary to her dementia history is obtained by caregiver was bedside. Hospital Course Thank you very much for your kind consultation. As you know this is a 77-year- old female patient with history of Parkinson's disease and dementia who was seen apparently by Dr. Gallardo at the [facility] and was transferred to the hospital for workup and treatment. I was consulted for evaluation and treatment of the lower extremity multiple gangrenous changes. Most of the history is obtained from chart review secondary to patient's dementia. 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 XR was negative for OM Seen by vascular surgery and podiatry, who recommended local wound care only and PO abx chronically. Patient was discharged with PO bactrim and follow up in clinic Home Meds Reported Medications Nortriptyline Hcl* (Nortriptyline Hcl*) 25 Mg Capsule, 25 MG PO HS, CAP 04/21/17 Docusate Sodium* (Colace*) 250 Mg Capsule, 250 MG PO BID, #60 CAP 04/21/17 Calcium Carbonate* (Tums X-Str) 300 Mg Tab.chew, 600 MG PO BID, TAB.CHEW 04/21/17 [place]-3 Fatty Acids/Fish Oil (Fish Oil 1,000 mg Capsule) 1 Each Capsule, 1 EACH PO BID, CAP 04/21/17 Atenolol* (Atenolol*) 100 Mg Tablet, 100 MG PO DAILY, #30 TAB 04/21/17 Rasagiline Mesylate* (Azilect*) 1 Mg Tablet, 1 MG PO DAILY, TAB 04/21/17 Paroxetine Hcl* (Paroxetine*) 20 Mg Tablet, 20 MG PO DAILY, TAB 04/21/17 Clopidogrel Bisulfate (Clopidogrel) 75 Mg Tablet, 75 MG PO DAILY, #30 TAB 04/21/17 Memantine* (Namenda* XR) 28 Mg Cap.spr.24, 28 MG PO DAILY, #30 TAB 04/21/17 Bnywjwhjk-Skvbchap-Vskqqgxaei (Stalevo 125) 31.25-200-125 Mg Tablet, 1 EACH PO QID, TAB 04/21/17 Follow-up Plan Follow up with the wound care doctors in the [facility] center Take Bactrim twice daily for your wound and continue betadyne solution Primary Care Provider Joy Russell MD Pending Labs Laboratory Tests Test 04/24/17 17:29 04/25/17 05:38 04/25/17 08:07 04/25/17 12:17 Bedside Glucose 104mg/dL (70-220) 83mg/dL (70-220) 127mg/dL (70-220) White Blood Count 11.110^3/ul (4.8-10.8) Red Blood Count 3.0810^6/ul (4.20-5.40) Hemoglobin 9.2g/dl (12.0-16.0) Hematocrit 28.3% (37.0-47.0) Mean Corpuscular Volume 91.9fl (82.0-101.0) Mean Corpuscular Hemoglobin 29.9pg (29.0-33.0) Mean Corpuscular Hemoglobin Concent 32.5g/dl (32.0-37.0) Red Cell Distribution Width 13.2% (11.5-14.5) Platelet Count 26990^3/UL (140-415) Mean Platelet Volume 8.9fl (7.4-10.4) Neutrophils % 76.2% (39.0-77.0) Lymphocytes % 13.3% (15.0-51.0) Monocytes % 7.7% (0.0-11.0) Eosinophils % 2.1% (0.0-7.0) Basophils % 0.3% (0.0-2.0) Nucleated Red Blood Cells % 0.0/100WBC (0.0-0.0) Neutrophils # 8.510^3/ul (1.6-7.5) Lymphocytes # 1.510^3/ul (0.8-2.9) Monocytes # 0.910^3/ul (0.3-0.9) Eosinophils # 0.210^3/ul (0.0-0.5) Basophils # 0.010^3/ul (0.0-0.1) Nucleated Red Blood Cells # 0.010^3/ul (0.0-0.0) Sodium Level 142mmol/L (135-144) Potassium Level 2.9mmol/L (3.5-5.1) Chloride Level 111mmol/L (97-110) Carbon Dioxide Level 26mmol/L (21-31) Anion Gap 8 (8-16) Blood Urea Nitrogen 8mg/dl (7-20) Creatinine 0.54mg/dl (0.44-1.00) Glucose Level 127mg/dl (70-220) Calcium Level 8.4mg/dl (8.4-10.2) Total Bilirubin 0.0mg/dl (0.2-1.3) Direct Bilirubin 0.00mg/dl (0.00-0.20) Indirect Bilirubin 0.0mg/dl (0-1.1) Aspartate Amino Transf (AST/SGOT) 88IU/L (15-46) Alanine Aminotransferase (ALT/SGPT) 29IU/L (13-69) Alkaline Phosphatase 90IU/L (42-121) Total Protein 6.2g/dl (6.1-8.1) Albumin 2.7g/dl (3.3-4.9) Globulin 3.50g/dl (1.3-3.2) Albumin/Globulin Ratio 0.77 YESSICA ALONSO MD Apr 25, 2017 15:35
--- NOTE | 2017-04-25 18:53 | PN ---
Date/Time of Note Date/Time of Note DATE: 04/25/17 TIME: 18:50 Assessment/Plan Lines/Catheters IV Catheter Type (from Nrs): Peripheral IV [place] in Place (from Nrs): No Assessment/Plan Problems: (1) Foot pain Status: Acute Qualifiers: Laterality: right Qualified Code: M79.671 - Right foot pain (2) Sepsis Status: Acute Qualifiers: Sepsis type: sepsis due to unspecified organism Qualified Code: A41.9 - Sepsis, due to unspecified organism (3) Wet gangrene Status: Acute Assessment/Plan I agree with vascular surgery recommendations. Continue to monitor patient. Patient will be followed in-house. Subjective 24 Hr Interval Summary Patient was seen at bedside. Patient is in no acute distress. Patient has history of Parkinson's disease and dementia. She is severely contracted. Pain Control: well controlled Exam/Review of Systems Vital Signs Vitals Vital Signs Date Time Temp Pulse Resp B/P Pulse Ox O2 Delivery O2 Flow Rate FiO2 04/25/17 15:30 97.8 82 157/72 97 Room Air 04/25/17 02:44 16 Intake and Output 04/24/17 04/24/17 04/25/17 15:00 23:00 07:00 Intake Total 50 ml 830 ml 1240 ml Balance 50 ml 830 ml 1240 ml Exam Free Text/Dictation Patient has contracture of the lower extremities. Pedal pulses are not palpable. Right foot and heel gangrene continues with dry skin surrounding the gangrenous tissue. There is no erythema and no pus or bleeding noted. No other changes noted on examination today. Results Result Diagram: 04/25/17 0538 04/25/17 0538 ABBY LINDO DPM Apr 25, 2017 18:53
[2017-04-25] MEDS: AMLODIPINE 5 MG TAB PO SCH (20:38)
[2017-04-26 02:00] VITALS: BP 144/64; RESP 18
[2017-04-26 07:40] VITALS: BP 148/70; RESP 18
[2017-04-26] MEDS: ACCU-CHEK XX SCH ×3 (08:13→17:35)
[2017-04-26] MEDS: ENOXAPARIN 40 MG/0.4 ML SYG SC SCH (08:16)
[2017-04-26] MEDS: ATENOLOL 100 MG TAB PO SCH (09:12)
[2017-04-26] MEDS: CALCIUM CARBONATE 750 MG CHEW TAB PO SCH (09:13)
[2017-04-26] MEDS: FISH OIL 1,000 MG CAP PO SCH (09:13)
[2017-04-26] MEDS: RASAGILINE MESYLATE 1 MG TAB PO SCH (09:13)
[2017-04-26] MEDS: CLOPIDOGREL 75 MG TAB PO SCH (09:13)
[2017-04-26] MEDS: AMLODIPINE 5 MG TAB PO SCH (09:14)
[2017-04-26] MEDS: MEMANTINE 10 MG TAB PO SCH (09:15)
[2017-04-26] MEDS: DOCUSATE SODIUM 250 MG CAP PO SCH (09:15)
--- NOTE | 2017-04-26 09:57 | PQ ---
Date/Time of Note Date/Time of Note DATE: 04/26/17 TIME: 09:52 Physician Query Documentation Clarification Dear Dr. Zepeda, A review of the medical record found a need for documentation clarification. Urine Cult + K Pneumoniae Urine + Bacteria / 3+ Leukocyte Esterase WBC = 14.9 ABX Please clarify the clinical significance of the above lab. result being treated. To facilitate accurate and complete coding, please roz ( x ) the suspected diagnosis that apply: ( ) UTI due to K pneumoniae ( ) No clinical significance ( ) Please provide your response by clicking edit document, making your choice ( x ), click ok/save and finally click sign. You may also document your response on your progress notes. Thank you for your time. With appreciation, Chapo Weller RN, BSN, CCS, CCDS Clinical Ammonia Solution Preparer Health Information Management, CDI and Coding Services [phone] Room # [address]~ [id number] CHAPO WELLER Apr 26, 2017 09:57
--- NOTE | 2017-04-26 09:57 | PQ ---
Date/Time of Note Date/Time of Note DATE: 04/26/17 TIME: 09:52 Physician Query Documentation Clarification Dear Dr. Zepeda, A review of the medical record found a need for documentation clarification. Urine Cult + K Pneumoniae Urine + Bacteria / 3+ Leukocyte Esterase WBC = 14.9 ABX Please clarify the clinical significance of the above lab. result being treated. To facilitate accurate and complete coding, please roz ( x ) the suspected diagnosis that apply: ( ) UTI due to K pneumoniae ( ) No clinical significance ( ) Please provide your response by clicking edit document, making your choice ( x ), click ok/save and finally click sign. You may also document your response on your progress notes. Thank you for your time. With appreciation, Chapo Weller RN, BSN, CCS, CCDS Clinical Coder Health Information Management, CDI and Coding Services [phone] Room # [address]~ [id number] CHAPO WELLER Apr 26, 2017 09:57
--- NOTE | 2017-04-26 09:57 | PQ ---
Date/Time of Note Date/Time of Note DATE: 04/26/17 TIME: 09:52 Physician Query Documentation Clarification Dear Dr. Zepeda, A review of the medical record found a need for documentation clarification. Urine Cult + K Pneumoniae Urine + Bacteria / 3+ Leukocyte Esterase WBC = 14.9 ABX Please clarify the clinical significance of the above lab. result being treated. To facilitate accurate and complete coding, please roz ( x ) the suspected diagnosis that apply: ( ) UTI due to K pneumoniae ( ) No clinical significance ( ) Please provide your response by clicking edit document, making your choice ( x ), click ok/save and finally click sign. You may also document your response on your progress notes. Thank you for your time. With appreciation, Chapo Weller RN, BSN, CCS, CCDS Clinical [facility] [phone] Room # [address]~ [id number] [place] Apr 26, 2017 09:57
[2017-04-26] MEDS: ENTACAPONE 200 MG TAB PO SCH ×3 (10:18→17:46)
[2017-04-26] MEDS: CARBIDOPA/LEVODOPA (25/100) TAB PO SCH ×3 (10:18→17:47)
[2017-04-26 14:59] VITALS: BP 138/62; RESP 20
[2017-04-26] MEDS ORDERED: POTASSIUM CHLORIDE 20 MEQ POWDER FOR ORAL SOLN PO ONE (15:00)
[2017-04-26] MEDS: HYDROCODONE/APAP (5/325) TAB PO PRN (15:38)
== END 2017-04-26 19:30 | disposition home or self-care (01) | DRG 872 ==
LOC: E/R 11:20 → PP2 11:48
PROVIDERS: ADMIT Hospitalist; ATTEND Hospitalist
DX: A41.9 Sepsis, unspecified organism (principal); I96 Gangrene, not elsewhere classified; G20 Parkinson's disease; N39.0 Urinary tract infection, site not specified; L08.9 Local infection of the skin and subcutaneous tissue, unspecified; F02.80 Dementia in other diseases classified elsewhere, unspecified severity, without behavioral disturbance, psychotic disturbance, mood disturbance, and anxiety; M24.551 Contracture, right hip; M24.561 Contracture, right knee
CPT/HCPCS: 36415; 71010; 73630; 80048; 80053; 80202; 81001; 82962; 83605; 83735; 84100; 84484; 85025; 85610; 85730; 87040; 87070; 87081; 87086; 93005; 96374; 96375; J0360; J1650; J2270; J2405; J3370; J3480; J7030; J7040